=== PATIENT | male | born 2000 | race Caucasian/White ===

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

== ENCOUNTER 2021-05-30 10:18 | Emergency (ER) | payer MEDICAID ==
[~2021-05-30] VITALS: Ht 180.3 cm; Wt 68.0 kg
[2021-05-30] MEDS ORDERED: HYDROCODONE/ACETAMINOPHEN 5/325MG TABLET PO ONE (11:00)
[2021-05-30 11:28] VITALS: BP 146/67
[2021-05-30] MEDS ORDERED: BACITRACIN ZINC OINT UDPKT TOP ONE (11:45)
[2021-05-30] MEDS ORDERED: NAPR-681 MT (13:58)
== END 2021-05-30 14:44 | disposition home or self-care (01) ==
LOC: ER 10:18
DX: S63.591A Other specified sprain of right wrist, initial encounter (principal); V86.56XA Driver of dirt bike or motor/cross bike injured in nontraffic accident, initial encounter; Y93.89 Activity, other specified; Y92.488 Other paved roadways as the place of occurrence of the external cause
CPT/HCPCS: 29125; 73110; 73130; 99284

== ENCOUNTER 2021-10-09 05:00 | Emergency (ER) | payer OTHER, MEDICAID ==
[~2021-10-09] VITALS: Ht 167.6 cm; Wt 70.0 kg
[~2021-10-09 05:00] MED LIST: NAPR-681 MT
[2021-10-09 05:04] VITALS: BP 111/55
[2021-10-09] MEDS ORDERED: ACETAMINOPHEN 325MG TABLET PO ONE (05:45)
[2021-10-09 06:06] LABS: CHLORIDE 111 mEq/L (98-107)
== END 2021-10-09 08:47 | disposition left against medical advice (07) ==
LOC: ER 05:15
DX: M25.532 Pain in left wrist (principal); V49.49XA Driver injured in collision with other motor vehicles in traffic accident, initial encounter; Y93.89 Activity, other specified; Y92.89 Other specified places as the place of occurrence of the external cause; Y99.8 Other external cause status
CPT/HCPCS: 36415; 71045; 73030; 73120; 80053; 99285

== ENCOUNTER 2022-05-18 15:10 | Emergency (ER) | payer MEDICAID, OTHER ==
[~2022-05-18] VITALS: Ht 177.8 cm; Wt 70.0 kg
[2022-05-18 15:12] VITALS: BP 147/66
== END 2022-05-18 16:14 ==
LOC: ER 15:10
DX: Z48.00 Encounter for change or removal of nonsurgical wound dressing (principal); R03.0 Elevated blood-pressure reading, without diagnosis of hypertension
CPT/HCPCS: 99283